=== PATIENT | female | born 1980 | race Two or more races ===

== ENCOUNTER → 2019-12-30 | Day surgery (SDC) | payer OTHER ==
--- NOTE | 2019-12-30 18:11 | OP ---
DATE OF OPERATION: 12/30/2019 PREOPERATIVE DIAGNOSIS: Abnormal right mammography. POSTOPERATIVE DIAGNOSIS: Abnormal right mammography. PROCEDURE PERFORMED: Right breast stereotactic needle biopsy with clips. SURGEON: Daniella Church MD ANESTHESIA: Local. COMPLICATIONS: None. DISPOSITION: Stable at the end of the procedure. INDICATIONS FOR PROCEDURE: The patient underwent a routine screening mammography that noted increase in microcalcifications in the upper outer right breast. The recommendation was a needle biopsy. The procedure was discussed with her and all of her questions answered. DESCRIPTION OF PROCEDURE: The patient was brought to [facility] in [place], laid prone on the [place] table. Using the lateral approach, the calcifications in the upper out right breast were identified. A sterile prep was obtained. A target was chosen. There was a positive stroke margin. Using Betadine and 1% lidocaine, a 14-gauge core biopsy device was used to take several cores from this area. The cores were sent to Pathology in formalin and this showed the calcification within them. These were handled with the usual calcification protocol. A clip was deployed in the area. Hemostasis was assured with direct pressure. The incision was closed with Steri-Strips. She tolerated the procedure well and left the breast imaging center in good condition. DANIELLA CHURCH M.D. [id number]
--- NOTE | 2019-12-31 15:08 | PATH ---
Surgical Pathology Report Patient Name: CRISSY ORANTES [facility]. Rec. #: [id number] /Age/Gender: 1980 (Age: 39) / F Account: [id number] Location: [facility] Taken: 12/30/2019 Received: 12/30/2019 Reported: 12/31/2019 Physicians: Daniella Del Real M.D. Specimen(s) Received RIGHT BREAST SPECIMEN WITH CALCIFICATIONS Clinical History Nonpalpable lesion Mammographic findings: Microcalcification, suspicious Final Diagnosis BREAST, RIGHT, WITH CALCIFICATIONS, STEREOTACTIC BIOPSY: BENIGN BREAST TISSUE SHOWING PROLIFERATIVE FIBROCYSTIC CHANGES INCLUDING CYSTIC APOCRINE METAPLASIA AND USUAL DUCTAL HYPERPLASIA (UDH) WITH ASSOCIATED CALCIFICATIONS. Electronically Signed Clarissa Johnson M.D. Gross Description Received in formalin labeled "right breast specimen with calcifications," are 13 sharma-yellow, cylindrical portions of fibroadipose tissue ranging from 0.4-2.2 cm in length and averaging 0.3 cm in diameter. The specimens are submitted in toto in 2 cassettes. Time to formalin fixation: 11 minutes Total formalin fixation time: Approximately 6 hours. [facility]
== END | disposition home or self-care (01) ==
LOC: FMAMMOTONE 12-23 10:15
PROVIDERS: ATTEND Surgery
PROC: 0HBT3ZX Excision of Right Breast, Percutaneous Approach, Diagnostic (ICD-10-PCS; principal; 2019-12-30)
DX: N60.11 Diffuse cystic mastopathy of right breast (principal); N60.81 Other benign mammary dysplasias of right breast; N64.89 Other specified disorders of breast; R92.1 Mammographic calcification found on diagnostic imaging of breast
CPT/HCPCS: 19081; 76098-TC-FY; 87899; A4648